=== PATIENT | male | born 1980 | race Caucasian/White ===

== ENCOUNTER 2018-10-26 11:54 | Emergency (ER) | payer SELFPAY ==
--- NOTE | 2018-10-26 12:02 | ED Physician Documentation ---
General Adult - HISTORIAN Historian: patient - HPI Stated Complaint: dental pain Chief Complaint: Dental Pain Onset: days ago (8) Timing: still present Severity: mild (pain now is much better although he knew he needs meds ) Further Comments: yes (He states over a week ago he started to have mild pain and swelling in the tooth area. He states that he had increased pain last night this am around 0630 he did take ibupforen this am and his pain is improved however he is aware the tooth has drainage from the area no fever.) - ROS CONST: no problems - PAST HX Past History: none Immunizations: UTD Allergies/Adverse Reactions: Allergies Allergy/AdvReac Type Severity Reaction Status Date / Time No Known Allergies Allergy Verified 10/26/18 12:07 Home Medications: Ambulatory Orders Medication Instructions Recorded NK 10/26/18 - SOCIAL HX Smoking History: cigarettes Alcohol Use: none Drug Use: none - FAMILY HX Family History: No - REVIEWED ASSESSMENTS Nursing Assessment Reviewed: Yes Vitals Reviewed: Yes General Adult Physical Exam - PHYSICAL EXAM GENERAL APPEARANCE: no distress EENT: eye inspection normal, pharynx normal, no signs of dehydration, other (right lower back tooth with redness and drainage noted swelling around broken tooth. ) NECK: normal inspection RESPIRATORY: no resp distress, chest non-tender, breath sounds normal CVS: reg rate & rhythm, heart sounds normal ABDOMEN: soft, normal bowel sounds, no distension BACK: normal inspection, no CVA tenderness SKIN: warm/dry, normal color EXTREMITIES: non-tender, normal range of motion, no evidence of injury, no edema NEURO: oriented X3 Discharge Clincal Impression: Dental abscess Referrals: Primary Doctor,No [Primary Care Provider] - 2 Days Comments: 1. Amoxicillin 875 mg take 1 by mouth every 12 hours x 10 days (FINISH THIS MED) 2. Tramodol 50 mg take 1 by mouth every 8 hours as needed for pain 3. Prednisone 20 mg take 1 by mouth daily x 5 days 4. Warm salt water gargles 5. Call dentist 6. Return to ER for any increasing concerns Condition: Stable Disposition: 01 HOME, SELF-CARE Decision to Admit: NO Date of Decison to Admit: 10/26/18 Decision Time: 12:11
[2018-10-26 12:07] VITALS: BP 147/83
== END 2018-10-26 12:17 | disposition home or self-care (01) ==
LOC: ED 11:54
DX: K04.7 Periapical abscess without sinus (principal)
CPT/HCPCS: 99281

== ENCOUNTER 2018-10-30 10:41 | Emergency (ER) | payer SELFPAY ==
[2018-10-30 10:53] VITALS: BP 131/78
[2018-10-30] MEDS ORDERED: Lidocaine 1% 5ml 10 MG/ML VIAL IM ONE (11:00)
--- NOTE | 2018-10-30 11:00 | ED Physician Documentation ---
General Adult - HISTORIAN Historian: patient - HPI Stated Complaint: metal in right hand Chief Complaint: General Adult Onset: minutes Timing: still present Severity: moderate Further Comments: yes (Pt is a 38 yo male with a foreign body, a piece of metal, lodged in his R palm. He was doing an automotive repair on a wheel, when a shard of metal came of the wheel and went through his glove into his R palm. Tetanus is utd.) - ROS CONST: no problems EYES/ENT: none CVS/RESP: none GI/: none MS/SKIN/LYMPH: other (foreign body R palm) - PAST HX Past History: other (Hep C) Allergies/Adverse Reactions: Allergies Allergy/AdvReac Type Severity Reaction Status Date / Time No Known Allergies Allergy Verified 10/26/18 12:07 Home Medications: Ambulatory Orders Medication Instructions Recorded Cephalexin [Keflex] 500 mg PO Q8H #21 capsule 10/30/18 - SOCIAL HX Smoking History: non-smoker - FAMILY HX Family History: No - VITAL SIGNS Vital Signs: Vital Signs Temp Pulse Resp BP Pulse Ox 97.8 F 58 L 19 131/78 99 10/30/18 10:47 10/30/18 10:47 10/30/18 10:47 10/30/18 10:47 10/30/18 10:47 - REVIEWED ASSESSMENTS Nursing Assessment Reviewed: Yes Vitals Reviewed: Yes Progress - Progress Progress: X-ray R hand: Impression: No osseous abnormality. Soft tissue foreign body adjacent to the distal margin of the 4th metacarpal. FB removed Lidocaine 1% 2 ml to affected area R palm after cleansing with Hybiclens FB removed with splinter forceps. Dressing Tetanus utd Rx Keflex 500 mg. Take one every 8 hours for 7 days. General Adult Physical Exam - PHYSICAL EXAM GENERAL APPEARANCE: no distress NECK: normal inspection RESPIRATORY: no resp distress, chest non-tender CVS: reg rate & rhythm, heart sounds normal BACK: normal inspection SKIN: other (small superficial laceration R palm, with FB visible within wound) EXTREMITIES: non-tender, normal range of motion NEURO: oriented X3, motor nml, sensation nml Discharge Clincal Impression: foreign body, metal shard, in R palm Prescriptions: Cephalexin [Keflex] 500 mg PO Q8H #21 capsule Referrals: Primary Doctor,No [Primary Care Provider] - Condition: Good Disposition: 01 HOME, SELF-CARE Decision to Admit: NO Decision Time: 11:41
--- NOTE | 2018-10-30 13:47 | Diagnostic Imaging Report ---
HANSA BETH [facility] [id number] [facility] [address] [address] Report Submission Date: Oct 30, 2018 11:37:39 AM CDT Patient Study Name: CLAUDIO RICHARDSON Date: Oct 30, 2018 11:10:30 AM CDT Modality Type: DX Gender: M Description: HAND 3 VIEWS OR MORE : 84 Institution: [facility] Physician: HANSA BETH Examination: Plain film right hand History: PAIN ON HAMMOND SURFACE OF HAND AFTER METAL FOREIGN BODY INJURY TODAY Comparison exams: None available Findings: 4 views of the right hand demonstrate normal cortical margins. No fracture. No dislocation. Linear metallic density projecting anterior to the distal margin of the 4th metacarpal. No other soft tissue abnormality. Impression: No osseous abnormality. Soft tissue foreign body adjacent to the distal margin of the 4th metacarpal. Electronically signed on Oct 30, 2018 11:37:39 AM CDT by: Gato BILLS
== END 2018-10-30 11:53 | disposition home or self-care (01) ==
LOC: ED 10:41
DX: S61.441A Puncture wound with foreign body of right hand, initial encounter (principal); W45.8XXA Other foreign body or object entering through skin, initial encounter; Y93.89 Activity, other specified; Y99.8 Other external cause status
CPT/HCPCS: 73130; 99283